=== PATIENT | male | born 1975 | race Caucasian/White ===

== ENCOUNTER → 2020-01-03 | Outpatient (CLI) | payer OTHER | LOC: RAD 08:00 | DX: M19.011 Primary osteoarthritis, right shoulder (principal) ==

== ENCOUNTER 2020-07-30 14:15 | Outpatient (RCR) | payer OTHER | END 2020-07-30 15:00 | disposition still patient (30) | LOC: PT 14:15 | DX: Z48.89 Encounter for other specified surgical aftercare (principal); S49.91XD Unspecified injury of right shoulder and upper arm, subsequent encounter; S46.191D Other injury of muscle, fascia and tendon of long head of biceps, right arm, subsequent encounter; M75.101 Unspecified rotator cuff tear or rupture of right shoulder, not specified as traumatic ==

== ENCOUNTER 2020-09-24 13:45 | Outpatient (RCR) | payer OTHER | END 2020-10-30 | disposition home or self-care (01) | LOC: PT | DX: Z48.89 Encounter for other specified surgical aftercare (principal); S49.91XD Unspecified injury of right shoulder and upper arm, subsequent encounter; M75.101 Unspecified rotator cuff tear or rupture of right shoulder, not specified as traumatic; S46.191D Other injury of muscle, fascia and tendon of long head of biceps, right arm, subsequent encounter ==

== ENCOUNTER → 2023-01-04 | Day surgery (SDC) | payer BC | LOC: MSO 08:15 | DX: Z12.11 Encounter for screening for malignant neoplasm of colon (principal); Z87.738 Personal history of other specified (corrected) congenital malformations of digestive system | CPT/HCPCS: 00812; J2704; J7120 ==